=== PATIENT | male | born 1940 | race Caucasian/White ===

== ENCOUNTER → 2024-09-21 09:37 | Outpatient (REF) | payer OTHER, SELFPAY | LOC: REG 09:37 | PROVIDERS: ATTENDING PHYSICIAN Physician Assistant Medical; FAMILY PHYSICIAN Family Medicine | DX: R05.3 Chronic cough (principal); R06.2 Wheezing | CPT/HCPCS: 71046 ==

== ENCOUNTER 2025-02-05 12:32 | Inpatient (IN) | payer OTHER, SELFPAY ==
[2025-02-05] VITALS (7 sets, daily range): BP systolic 95–147; BP diastolic 61–87; BMI 24.7; BMI 23.2
[2025-02-05 09:30] LABS: % Basophils 0.8 % (0-2); % Immature Granulocytes 0.4 % (0-0.5); % Lymphocytes 18.4 % (20.5-51.1); % Monocytes 11.8 % (1.7-9.3); % Neutrophils 63.6 % (42.2-75.2); Absolute Basophils 0.1 10^3/uL (0-0.2); Absolute Eosinophils 0.4 10^3/uL (0-0.7); Absolute Lymphocytes 1.4 10^3/uL (1.2-3.4); Absolute Monocytes 0.9 10^3/uL (0.1-0.6); Absolute Neutrophils 4.8 10^3/uL (1.4-6.5); Mean Corp Hgb Conc. 35.6 g/dL (33.0-37.0); Mean Corpuscular Hgb 33.6 pg (27.0-31.0); Mean Corpuscular Volume 94.5 fL (80.0-94.0); Mean Platelet Volume 9.5 fL (7.4-10.4); Nucleated Red Blood Cells % 0 % (-); Platelet Count 308 10^3/uL (130-400); Red Blood Cell Count 4.76 10^6/uL (4.70-6.10); Red Cell Dist. Width 11.8 % (11.5-14.5); White Blood Cell Count 7.6 10^3/uL (4.8-10.8)
[2025-02-05 09:34] LABS: ALT (SGPT) 30 U/L (0-50); AST (SGOT) 33 U/L (17-59); Albumin 3.7 g/dl (3.5-5.0); Alkaline Phosphatase 129 U/L (38-126); Blood Urea Nitrogen 16 mg/dl (9-20); Calcium 9.5 mg/dl (8.4-10.2); Carbon Dioxide 28 mmol/L (22-30); Chloride 104 mmol/L (98-107); Estimated Creatinine Clearance 65 ml/min; Glucose 122 mg/dl (70-99); Lipase 983 U/L (23-300); Potassium 4.4 mmol/L (3.5-5.1); Sodium 138 mmol/L (135-145); Total Bilirubin 1.4 mg/dl (0.2-1.3); Total Protein 6.4 g/dl (6.3-8.2); eGFR > 60.00
--- NOTE | 2025-02-05 10:47 | ED.GENMED ---
History of Present Illness
General
Chief Complaint: Abdominal Pain
Source: patient, records and spouse
Exam Limitations: none
Time Seen by Provider: 02/05/25 09:18
Nursing documentation reviewed up to this point in time: agreed with
History of Present Illness
History of Present Illness:
84-year-old male status post cholecystectomy, social drinker presents with nausea and abdominal bloating last evening, today felt better then developed fairly intense right upper abdominal pain reminiscent of his gallstones, requiring 911 EMS
activation here is feeling a bit better, no fever chills no chest pain, had a few glasses of white wine last night which is not uncommon for him,
Past History
Past History
ED Past Medical History: Other (Back pain)
ED Past Surgical History: Cholecystectomy; Negative Cardiac
Social History
Tobacco: Non-smoker
Alcohol: Occasional
Drug: None
Personal:
Living: with family
Employment: Retired
Family History
Family History: Other (Noncontributory)
Review of Systems
Review of Systems
All Other Systems: Not applicable
Constitutional: Denies fever or fatigue
EENT: Reports no symptoms
Respiratory: Reports no symptoms
Cardiac: Reports no symptoms
ABD/GI: Reports abdominal pain, nausea and vomiting
Musculoskeletal: Reports no symptoms
Skin: Reports no symptoms
Phy Exam
Physical Exam
Physical Exam:
Physical Exam
General: no apparent distress, not acutely ill
Neck: No jaundice
Heart: s1/s2 regular rate and rhythm, no murmur. equal radial pulses.
Lungs: no acute respiratory distress. clear bilaterally
Abdomen: Soft nontender
Neuro: alert and oriented. no focal neurological deficits
Skin: no rash
Psychiatric: well kept. interactive and cooperative
Extremities: no edema.
Course
Orders/Labs/Results
Orders:
Orders
02/05/25 09:09
Electrocardiogram (*1) Urgent
Reason for Study: Abdominal Pain
EKG- Treatment ONCE
02/05/25 09:11
Complete Blood Count/With Diff Urgent
Comprehensive Metabolic Panel Urgent
Lipase Urgent
02/05/25 10:19
CT Abd/pelvis W Iv Cont Urgent
Comment:
Reason For Exam: pain lipase up
02/05/25 10:34
0.9% Sodium Chloride 1000 ml [Nss] 1,000 ml IV BOLUS
Ondansetron Injectable [Zofran] 4 mg IV NOW STA
Pantoprazole [Protonix IV] 40 mg IV NOW STA
02/05/25 11:31
HYDROmorphone [Dilaudid] 0.5 mg IV NOW STA
Abnormal Lab Results
02/05/25
09:11
MCV 94.5 H fL
(80.0-94.0)
MCH 33.6 H pg
(27.0-31.0)
Absolute Monos (auto) 0.9 H 10^3/uL
(0.1-0.6)
Lymphocytes % 18.4 L %
(20.5-51.1)
Monocytes % 11.8 H %
(1.7-9.3)
Glucose 122 H mg/dl
(70-99)
Total Bilirubin 1.4 H mg/dl
(0.2-1.3)
Alkaline Phosphatase 129 H U/L
(38-126)
Lipase 983 H U/L
(23-300)
02/05/25 09:11
02/05/25 09:11
Vital Signs
Initial and Last Documented VS:
Initial Vital Signs
BP
147/87
02/05/25 09:05
Last Documented Vital Signs
Temp Pulse Resp BP Pulse Ox
98.4 F 68 16 147/87 94
02/05/25 09:06 02/05/25 10:00 02/05/25 09:45 02/05/25 09:06 02/05/25 09:45
MDM/Problems Addressed
Differential Diagnosis Includes:
Pancreatitis biliary colic common duct stone
MDM/Problems Addressed:
Abdominal pain
Chronic conditions affecting care: Previous abdomnial surgery
Acute Exacerbation and/or Progression of Chronic Illness: Previous abdomnial surgery
*Critical Care Note
Total Time (30-74mins, 75-104mins- exclusive of procedures): Not Applicable
Update Note
Update Note:
update
Labs noted patient with her current pain, CT noted will require admission
ED Attending Note
-
Portions of this chart may have been created with voice recognition software.� Occasional wrong word or��sound alike� substitutions may have occurred due to the inherent limitations of voice recognition software.
Discharge Plan
Departure
Patient Disposition: Admit
Date of Disposition: 02/05/25
Time of Disposition: 12:03
Presentation/result/management discussed w/ accepting MD/DO: Hospitalist
Patient with high blood pressure during this ER visit?: No
Condition: Good
Covid-19: Not Applicable
Discharge Problem:
Abdominal pain
Prescriptions:
No Action
mupirocin 1 APPLIC ointment
1 applic intranasal BID Qty: 1 0RF
Rx Instructions:
Patient has from prior L TSA.
oxycodone 5 MG tablet
5 mg PO Q6HPRN PRN (Reason: moderate-severe pain) Qty: 30 0RF
Rx Instructions:
1 tab moderate pain or 2 if pain severe
Dx total joint replacement
ongoing therapy
celecoxib 200 MG capsule
200 mg PO DAILY Qty: 30 0RF
ondansetron HCl 4 MG tablet
4 mg PO Q6HPRN PRN (Reason: nausea) Qty: 15 0RF
Rx Instructions:
Take 1/2 hour prior to Oxycodone if experiencing recurrent nausea
famotidine 20 MG tablet
20 mg PO HS Qty: 30 0RF
acetaminophen 500 MG tablet
1,000 mg PO Q6H Qty: 1 0RF
Rx Instructions:
Do not exceed >4000 mg daily.
docusate sodium 100 MG capsule
100 mg PO BID Qty: 1 0RF
sennosides [senna] 8.6 MG tablet
8.6 mg PO BID Qty: 2 0RF
aspirin 325 MG tablet
325 mg PO DAILY Qty: 1 0RF
Rx Instructions:
Take daily x4 weeks for blood clot prevention.
Referrals:
Afua Gonzalez DO [Family Provider] -
Interventions
Interventions:
*Risk Screen - Suicide Last Done: 02/05/25 09:06
*General Assessment Last Done: 02/05/25 09:06
*Neglect/Abuse Screening Last Done: 02/05/25 09:06
*ED- Fall Risk Assessment Last Done: 02/05/25 09:10
*ED COVID-19 Vaccine History Last Done: 02/05/25 09:10
GX-Nxowjo-Arwelpdnaq Assessment Last Done: 02/05/25 09:39
Discharge Date and Time
Print Language: MALAWIAN
[2025-02-05] MEDS: NSS 1000 IV ×2 (10:51→16:07)
[2025-02-05] MEDS: PROTONIX IV 40 MG IV (10:51)
[2025-02-05] MEDS: ZOFRAN 4 MG IV (10:51)
[2025-02-05] MEDS: DILAUDID 0.5 MG IV (11:34)
[2025-02-05] MEDS: DILAUDID 1 MG IV ×3 (12:08→20:07)
--- NOTE | 2025-02-05 12:20 | HPS.HSE ---
Family Physician
-
Family Physician: Afua Gonzalez
Chief Complaint
-
abdominal pain
History of Present Illness
84-year-old male past medical history of cholelithiasis status post cholecystectomy in 2011, polycythemia vera, diverticulosis, spinal stenosis, osteoarthritis, presenting with vomiting since last night and severe right upper quadrant abdominal pain
starting this morning.. Today he felt better but then he developed fairly intense right upper abdominal pain reminiscent of gallstones. He called EMS. He denies any fevers or chills. Denies chest pain. Denies shortness of breath. Denies
diarrhea or constipation.
He does drink alcohol occasionally. He had a few glasses of white wine last night which is not uncommon for him.
He was treated with UTI initially with ciprofloxacin and switch to another antibiotic last week.
Denies smoking.
His mother had gallstone disease.
Medical History
Past Medical History
Past Medical History: Reports Other ( cholelithiasis status post cholecystectomy in 2011, polycythemia vera, diverticulosis, spinal stenosis, osteoarthritis, )
Past Surgical History: Reports Cholecystectomy
Social History
Tobacco: Non-smoker
Alcohol: Occasional
Drug: None
Family History
Family History: Not pertinent
Allergies / Home Medications
Allergies reflects when Allergies were last updated in [facility].
Home Medications with original date entered in [facility]
Allergy/Medication List:
Allergies
Allergy/AdvReac Type Severity Reaction Status Date / Time
No Known Allergies Allergy Verified 02/05/25 09:10
Home Medications
celecoxib 200 mg capsule 200 mg PO DAILY #30 caps 08/17/20
famotidine 20 mg tablet 20 mg PO HS #30 tabs 08/17/20
mupirocin 2 % topical ointment 1 applic intranasal BID #1 tube 08/17/20
ondansetron HCl 4 mg tablet 4 mg PO Q6HPRN PRN nausea #15 tabs 08/17/20
oxycodone 5 mg tablet 5 mg PO Q6HPRN PRN moderate-severe pain #30 tabs 08/17/20
acetaminophen 500 mg tablet 1,000 mg (2 x 500 mg) PO Q6H #1 tab 09/07/20
aspirin 325 mg tablet 325 mg PO DAILY #1 tab 09/07/20
docusate sodium 100 mg capsule 100 mg PO BID #1 cap 09/07/20
sennosides 8.6 mg tablet (senna) 8.6 mg PO BID #2 tabs 09/07/20
Review of Systems
-
History Source: Patient
A 12 point ROS was completed and negative except as noted: Yes
Constitutional: Reports No Symptoms
EENT: Reports No Symptoms
Respiratory: Reports No Symptoms
Cardiac: Reports No Symptoms
Abdomen/GI: Reports See HPI
: Reports No Symptoms
Musculoskeletal: Reports No Symptoms
Skin: Reports No Symptoms
Neurological: Reports No Symptoms
Endocrine: Reports No Symptoms
Hematologic/Lymphatic: Reports No Symptoms
Psych: Reports No Symptoms
Physical Exam
Vital Signs
Vital Signs
Temp Pulse Resp BP Pulse Ox
98.4 F 68 16 147/87 94
02/05/25 09:06 02/05/25 10:00 02/05/25 09:45 02/05/25 09:06 02/05/25 09:45
Physical Exam
General: Well Developed, Well Nourished and No Apparent Distress
HEENT: NormoCephalic, Moist mucous membranes and Atraumatic
Respiratory: Clear
Cardiac: S1/S2 and Regular Rhythm; No Murmur or Rub
GI: Soft, Non Distended, Normal Bowel Sounds and Tender (RUQ ); No Organomegaly
Rectal: Deferred by Provider
Musculoskeletal: No Clubbing, No Cyanosis and No Edema
Skin: No Rash
Neuro: Nonfocal/grossly intact
Laboratory Results
-
02/05/25 09:11
02/05/25 09:11
Laboratory Results
Total Bilirubin 1.4 mg/dl (0.2-1.3) H 02/05/25 09:11
AST 33 U/L (17-59) 02/05/25 09:11
ALT 30 U/L (0-50) 02/05/25 09:11
Alkaline Phosphatase 129 U/L (38-126) H 02/05/25 09:11
Lipase 983 U/L (23-300) H 02/05/25 09:11
Data Reviewed
-
Lab Data: Labs Reviewed by me
Old Records: Reviewed
Impression/Plan
-
IMPRESSION:
PLAN:
# Right upper quadrant pain concerning for choledocholithiasis
# History of cholelithiasis status post cholecystectomy in 2011
-LFTs normal, total bilirubin only 1.4
-Lipase 980
-CT abdomen pelvis shows prior cholecystectomy, atrophy with biliary duct dilatation within the left hepatic lobe which is overall similar in appearance prior may be related to biliary obstruction or stenosis, no findings of acute pancreatitis
-N.p.o.
-IV fluids
-MRI/MRCP
-Dilaudid, Zofran
-GI consulted
History of gallstones status post cholecystectomy
Polycythemia vera
Diverticulosis
Spinal stenosis/osteoarthritis
Full code
DVT prophylaxis�heparin
N.p.o.
[2025-02-05] MEDS: HEPARIN 5000 UNITS SC (20:06)
[2025-02-06] MEDS: NSS 1000 IV ×2 (02:05→17:09)
[2025-02-06 06:24] LABS: % Basophils 0.1 % (0-2); % Immature Granulocytes 0.4 % (0-0.5); % Lymphocytes 4.1 % (20.5-51.1); % Monocytes 6.6 % (1.7-9.3); % Neutrophils 88.8 % (42.2-75.2); Absolute Immature Granulocytes 0.1 10^3/uL (0-0.05); Absolute Lymphocytes 0.7 10^3/uL (1.2-3.4); Absolute Neutrophils 14.1 10^3/uL (1.4-6.5); Hematocrit 44.6 % (39.0-52.0); Hemoglobin 15.9 g/dL (13.0-18.0); Mean Corp Hgb Conc. 35.7 g/dL (33.0-37.0); Mean Corpuscular Hgb 34.2 pg (27.0-31.0); Mean Corpuscular Volume 95.9 fL (80.0-94.0); Nucleated Red Blood Cells % 0 % (-); Platelet Count 299 10^3/uL (130-400); Red Blood Cell Count 4.65 10^6/uL (4.70-6.10); Red Cell Dist. Width 11.9 % (11.5-14.5); White Blood Cell Count 15.9 10^3/uL (4.8-10.8)
[2025-02-06] MEDS: DILAUDID 1 MG IV ×4 (06:37→21:17)
[2025-02-06 06:54] LABS: ALT (SGPT) 39 U/L (0-50); AST (SGOT) 43 U/L (17-59); Albumin 3.5 g/dl (3.5-5.0); Alkaline Phosphatase 120 U/L (38-126); Blood Urea Nitrogen 12 mg/dl (9-20); Calcium 8.7 mg/dl (8.4-10.2); Carbon Dioxide 25 mmol/L (22-30); Chloride 102 mmol/L (98-107); Estimated Creatinine Clearance 87 ml/min; Glucose 135 mg/dl (70-99); Potassium 4.3 mmol/L (3.5-5.1); Sodium 134 mmol/L (135-145); Total Bilirubin 2.5 mg/dl (0.2-1.3); eGFR > 60.00
[2025-02-06 07:00] VITALS: BP 163/83
[2025-02-06] MEDS: HEPARIN 5000 UNITS SC ×2 (07:46→20:13)
[2025-02-06] MEDS: NSS IV (11:47)
--- NOTE | 2025-02-06 12:39 | W.PN.HOSP.TC ---
Today's Communication/Plan
-
Assessment / Plan
Assessment / Plan
Gen-AAOx3, NAD
HEENT-NC, AT, anicteric, clear oral mm
Neck-supple
CV-reg, no M, +S1/S2
Lungs-clear B/L
Abd-soft, mild TTP diffusely
Musculoskeletal-no edema, no deformity
Skin-warm and dry
Neuro-grossly non-focal
Psych-calm, cooperative
Mr. Patel is an 84-year-old male with a medical history of polycythemia vera, diverticulosis, cholelithiasis (status post cholecystectomy 2011), spinal stenosis, and osteoarthritis who presented with severe right upper quadrant abdominal pain with
associated vomiting. CT imaging of his abdomen and pelvis confirms prior cholecystectomy, shows intrahepatic biliary duct dilatation, no evidence of pancreatitis, extensive colonic diverticulosis. He was started on IV fluids and pain medications
and admitted for further evaluation and management.
Right upper quadrant pain:
-Concern for choledocholithiasis, history of cholecystectomy in 2011
-Lipase and T. bili elevated
-MRCP pending
-Will start antibiotics with ceftriaxone and metronidazole considering leukocytosis with left shift
-N.p.o. for now, IV fluids, pain control
-To be evaluated by GI
Hyponatremia:
-Mild, clinically insignificant
-Will monitor
CODE STATUS: Full code
Anticipated Discharge: 24 - 48 hours
Subjective/Interval History
-
Date of Service: February 06, 2025
Patient was seen and examined at bedside this morning. Reports migration of his abdominal pain from right upper quadrant to diffusely painful including left lower quadrant at times. Awaiting MRCP for further evaluation of possible CBD obstruction.
Objective Data
-
Labs:
Laboratory Results
02/06/25
05:10
WBC 15.9 H
Hgb 15.9
Hct 44.6
Plt Count 299
Sodium 134 L
Potassium 4.3
Chloride 102
Carbon Dioxide 25
BUN 12
Creatinine 0.6 L
Glucose 135 H
Calcium 8.7
Total Bilirubin 2.5 H D
AST 43
ALT 39
Alkaline Phosphatase 120
Vital Signs:
Vital Signs
Temp Pulse Resp BP Pulse Ox
98.1 F 82 16 163/83 97
02/06/25 07:00 02/06/25 07:00 02/06/25 07:00 02/06/25 07:00 02/06/25 07:00
Review of Systems
-
History Source: Patient
All other systems: Reviewed and negative
Abdomen/GI: Reports Abdominal Pain
Physical Exam
-
General: No Apparent Distress
[2025-02-06 13:20] LABS: Direct Bilirubin 0.6 mg/dl (0.0-0.4)
[2025-02-06] MEDS: STERILE WATER FOR INJECTION 10 ML IV (13:54)
[2025-02-06] MEDS: ROCEPHIN 1000 MG IV (13:55)
--- NOTE | 2025-02-06 14:05 | CON.GI ---
Addendum entered and electronically signed by Akanksha Marcano MD 02/06/25 16:27:
I saw and examined the patient.
The LOCAL BULK DRIVER or PA's note was reviewed and I agree with the note.
Comment:
This patient is an 84-year-old man with a history of polycythemia vera, cholelithiasis status postcholecystectomy in 2011. He came to the emergency room with acute right upper quadrant pain that is now traveling to his epigastric region. He
states that the pain was very similar to his biliary colic. He did have labs drawn that showed a mildly elevated bilirubin with normal transaminases and alkaline phosphatase. He did have an elevated lipase at 983. He did have imaging and an MRI
did show narrowing and stricturing in his left intrahepatic ducts with a normal common bile duct. He does have pancreatic cysts and a small amount of ascites This is somewhat chronic as he did have changes seen in 2020. Currently he states that the
pain has traveled over to the left. He has no fevers, nausea or vomiting. He does have decreased appetite.
abd: soft, nontender
impression:
pancreatitis,
pancreatitic cysts
abnl imaging
intrahepatic bile duct dilation
decreased appetite
plan:
This patient is an 84-year-old man with a history of a cholecystectomy who has chronic changes in his intrahepatic bile ducts on the left which appear to be worsening as well as pancreatic cysts and a small amount of ascites. This is the first time
he has had abdominal pain and decreased appetite. For now would do the following:
1. I did discuss with him and his at length regarding the anatomy changes he has. Although there is no mass or lesion that should be further worked up as he is now having new pain. I do think his images need to be reviewed by Dr. Heath our
interventional endoscopist. Further interventions will be based on his evaluation
2. pain control
3. PPI
4. clears
Original Note:
Consultation
-
Date/Time Consultation Requested: 02/05/25 1311
Date/Time Consultation Performed: 02/06/25 1200
Requesting Provider: Dr. Prescott
Performing Provider: /GRADY Clemente
Reason for Consultation: abd pain
Medical History
Chief Complaint / HPI
Chief Complaint: abd pain
History of Present Illness:
84-year-old male with past medical history of polycythemia vera, diverticulosis, spinal stenosis, osteoarthritis, cholelithiasis status postcholecystectomy 2011, recent UTI treated with Cipro followed by another antibiotic that he cannot recall the
name of with resolution of symptoms, presents to the emergency room with acute onset of right upper quadrant discomfort. Asked to evaluate for the same. The patient states that Thursday evening he ate a chicken cheese steak, bag of chips and
coleslaw. That night he woke up at approximately 2 AM with nausea and vomiting. He states the following morning he woke up he states he stretched and then had acute onset of epigastric/right upper quadrant pain that was sharp, constant, severe in
intensity which he rates a 9 out of 10. This reminded him of the time he had a gallstone attack. He presented to the emergency room for further evaluation. Since that time the pain went from the right side of his abdomen and moved to the left.
The pain stayed the same intensity. Last night he states that it was quite severe. He states the pain medication did not touch the discomfort. Finally this morning the pain dissipated. He denied any fevers, chills, melena, hematochezia, acholic
stools, bilirubinuria. He does not smoke. He drinks approximately 3-4 alcoholic beverages on the weekend. His last colonoscopy was approximately 10 years ago. He does take aspirin 325 mg daily as well as Celebrex daily, Aleve 1 pill daily and an
occasional ibuprofen. He also uses Tylenol 1 a day as well. On arrival WBC 7.6, hemoglobin 16.0, hematocrit 45.0, platelets 308. He was afebrile. Started on ceftriaxone today as he developed a leukocytosis of 15.9 without fever. Sodium 134,
potassium 4.3, chloride 102, CO2 25, BUN 12, creatinine 0.6, glucose 135. On arrival total bilirubin 1.4 that was not fractionated. Today bilirubin 2.5 with direct bilirubin 0.6, AST 43, ALT 39, alk phos 120. Lipase yesterday 983.
Past Medical History
Past Medical History: Other (Polycythemia vera, diverticulosis, spinal stenosis, osteoarthritis, cholelithiasis status postcholecystectomy, UTI)
Past Surgical History: Cholecystectomy
Social History
Tobacco: Non-Smoker
Alcohol: Occasional (3-4 on weekends)
Drug: None
Family History
Family History: Other (No family history gastrointestinal malignancy or IBD)
Allergies / Home Medications
Allergy/AdvReac Type Severity Reaction Status Date / Time
No Known Allergies Allergy Verified 02/05/25 09:10
�Medication �Instructions �Recorded
ondansetron HCl 4 mg tablet 4 mg PO Q6HPRN PRN nausea #15 tabs 08/17/20
oxycodone 5 mg tablet 5 mg PO Q6HPRN PRN moderate-severe 08/17/20
pain #30 tabs
acetaminophen 500 mg tablet 1,000 mg PO Q6H Fever/Pain 02/06/25
acetaminophen 500 mg tablet 1,000 mg PO Q6H Pain 02/06/25
aspirin 325 mg tablet 325 mg PO DAILY Heart 02/06/25
Disease/Condition
aspirin 325 mg tablet 325 mg PO DAILY Heart Failure 02/06/25
celecoxib 200 mg capsule 200 mg PO DAILY Pain 02/06/25
docusate sodium 100 mg capsule 100 mg PO BID Constipation 02/06/25
famotidine 20 mg tablet 20 mg PO HS Gastrointestinal Issue 02/06/25
mupirocin 2 % topical ointment 1 applic intranasal BID Skin Issues 02/06/25
sennosides 8.6 mg tablet (senna) 8.6 mg PO BID Constipation 02/06/25
sennosides 8.6 mg tablet (senna) 8.6 mg PO BID Loose Stools 02/06/25
Review of Systems
-
All other systems: A 12 pt ROS was Negative except as stated above in HPI
Vital Signs
Temp Pulse Resp BP Pulse Ox
98.1 F 82 16 163/83 97
02/06/25 07:00 02/06/25 07:00 02/06/25 07:00 02/06/25 07:00 02/06/25 07:00
Physical Exam
Exam
General: No Apparent Distress
HEENT: Anicteric
Respiratory: Clear
Cardiac: Regular Rhythm
GI: Soft, Non Tender, Non Distended and Normal Bowel Sounds
Musculoskeletal: No Edema
Skin: Warm and Dry
Neuro: AO x 3
Psych: Calm
Results
WBC 15.9 10^3/uL (4.8-10.8) H 02/06/25 05:10
Hgb 15.9 g/dL (13.0-18.0) 02/06/25 05:10
Hct 44.6 % (39.0-52.0) 02/06/25 05:10
MCV 95.9 fL (80.0-94.0) H 02/06/25 05:10
Plt Count 299 10^3/uL (130-400) 02/06/25 05:10
Absolute Neuts (auto) 14.1 10^3/uL (1.4-6.5) H 02/06/25 05:10
Sodium 134 mmol/L (135-145) L 02/06/25 05:10
Potassium 4.3 mmol/L (3.5-5.1) 02/06/25 05:10
Chloride 102 mmol/L (98-107) 02/06/25 05:10
Carbon Dioxide 25 mmol/L (22-30) 02/06/25 05:10
BUN 12 mg/dl (9-20) 02/06/25 05:10
Creatinine 0.6 mg/dL (0.7-1.3) L 02/06/25 05:10
Calcium 8.7 mg/dl (8.4-10.2) 02/06/25 05:10
Total Bilirubin 2.5 mg/dl (0.2-1.3) H D 02/06/25 05:10
AST 43 U/L (17-59) 02/06/25 05:10
ALT 39 U/L (0-50) 02/06/25 05:10
Alkaline Phosphatase 120 U/L (38-126) 02/06/25 05:10
Lipase 983 U/L (23-300) H 02/05/25 09:11
Diagnostic Image Results:
CT abdomen and pelvis with IV contrast only:
IMPRESSION:
Prior cholecystectomy.
There is atrophy with intrahepatic biliary duct dilation within the left hepatic lobe which is overall similar in appearance to prior however may be related to biliary obstruction or stenosis. Consider MRCP for further evaluation.
There is no definite CT findings of acute pancreatitis.
Extensive colonic diverticulosis.
Electronically signed by Anatoliy Vincent MD, 02/05/2025 11:43 AM
MRI of the abdomen with and without contrast with MRCP:
IMPRESSION: Status post cholecystectomy.
Severe intrahepatic bile duct dilation involving the lateral segment. This is been present on CT scan dating back to 2020 with progressive atrophy of the parenchyma of the lateral segment of the liver.
This appears to be due to a focal stenosis at the junction of the left hepatic duct and the lateral segmental branch, with no MR evidence for an obstructing mass lesion.
Two filling defects within the dilated ducts of the lateral segment, compatible with calculi.
Mild intrahepatic bile duct dilation the rest of the liver, likely physiologic after cholecystectomy. There is no significant dilation of the common hepatic duct or the common bile duct. There is no evidence for calculus within the common hepatic
duct and the common bile duct.
Small amount of ascites adjacent liver and spleen, and also seen within the pelvis. This ascites appears new from yesterday's CT examination.
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 In an 84-year-old, no further imaging follow-up is generally recommended.
Electronically signed by Rosas Gregory MD, 02/06/2025 1:16 PM
Prior GI Procedures:
EGD: never
Colonoscopy: 02/27/2014 (dr. James) Multiple small and large-mouthed diverticula were found in the sigmoid
colon.
The exam was otherwise without abnormality.
Assessment / Plan
-
84-year-old male with past medical history of polycythemia vera, diverticulosis, spinal stenosis, osteoarthritis, cholelithiasis status postcholecystectomy 2011, recent UTI treated with Cipro followed by another antibiotic that he cannot recall the
name of with resolution of symptoms, presents to the emergency room with acute onset of right upper quadrant discomfort. Asked to evaluate for the same. The patient states that Thursday evening he ate a chicken cheese steak, bag of chips and
coleslaw. That night he woke up at approximately 2 AM with nausea and vomiting. He states the following morning he woke up he states he stretched and then had acute onset of epigastric/right upper quadrant pain that was sharp, constant, severe in
intensity which he rates a 9 out of 10. This reminded him of the time he had a gallstone attack. He presented to the emergency room for further evaluation. He does take aspirin 325 mg daily as well as Celebrex daily, Aleve 1 pill daily and an
occasional ibuprofen. He also uses Tylenol 1 a day as well. On arrival WBC 7.6, hemoglobin 16.0, hematocrit 45.0, platelets 308. He was afebrile. Started on ceftriaxone today as he developed a leukocytosis of 15.9 without fever. Sodium 134,
potassium 4.3, chloride 102, CO2 25, BUN 12, creatinine 0.6, glucose 135. On arrival total bilirubin 1.4 that was not fractionated. Today bilirubin 2.5 with direct bilirubin 0.6, AST 43, ALT 39, alk phos 120. Lipase yesterday 983.
MRI Abd MRCP findings:
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
--2 filling defects within the dilated ducts compatible with calculi
--Mild intrahepatic duct dilatation, s/p cholecystectomy
--No common hepatic duct dilatation or calculi seen on MRI
--No CBD dilatation or calculi seen on imaging
--small ascites adjacent to liver, spleen and pelvis new from CT yesterday
--mild dilatation of pancreatic duct within the head of the pancreas (4mm), posterior aspect of proximal tail (4mm cyst), posterior head pancreas (4mm cyst) and few other scattered smaller cysts within pancreas
Impression:
RUQ pain/epigastric/LUQ pain
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
Mild pancreatic duct dilatation
Elevated Lipase
Elevated WBC
Elevated T Bili, however normal fractionation and normal transaminases
Plan:
-Continue NPO
-IVF
-Continue Ceftriaxone
-Will need to review MRI/MRCP with Dr. Heath
-Continue Pantoprazole, discussed with patient overuse of NSAIDS. (Is taking ASA 325 daily, Celebrex, Aleve daily. Uses Motrin or Advil almost daily as well.)
-CBC, BMP, LFTs, in am
-
-
Thank you for consultation and allowing me to participate in the patient's care. Please call the sales assistant institutional sales GI physician during the after hours with any questions or concerns.
[2025-02-06] MEDS: FLAGYL 250 MG 50 IV ×2 (14:17→21:18)
[2025-02-06 15:00] VITALS: BP 147/74
--- NOTE | 2025-02-06 15:56 | CM ---
Alert awake oriented patient who lives with his Yanira in a 2 story home with 32 step to enter and 13 steps to bed and bathroom. He is independent in driving and in all activities of daily living.He was offered VN he declined need.His will
drive him home at pr.
No VN hx / No SNF history
Pharmacy [facility] [address] [place]
PCP DR Flores
PLAN Home Declined VN
[2025-02-06 23:00] VITALS: BP 139/65
[2025-02-07] VITALS (7 sets, daily range): BP systolic 115–160; BP diastolic 57–77
[2025-02-07] MEDS: TYLENOL 650 MG PO ×2 (05:05→09:57)
[2025-02-07] MEDS: FLAGYL 250 MG 50 IV ×3 (05:05→22:20)
[2025-02-07] MEDS: NSS 1000 IV ×2 (05:05→17:09)
[2025-02-07 05:45] LABS: Hematocrit 40.3 % (39.0-52.0); Hemoglobin 14.6 g/dL (13.0-18.0); Mean Corp Hgb Conc. 36.2 g/dL (33.0-37.0); Mean Corpuscular Hgb 34.4 pg (27.0-31.0); Mean Platelet Volume 9.8 fL (7.4-10.4); Platelet Count 282 10^3/uL (130-400); Red Blood Cell Count 4.24 10^6/uL (4.70-6.10); Red Cell Dist. Width 11.9 % (11.5-14.5); White Blood Cell Count 10.7 10^3/uL (4.8-10.8)
[2025-02-07 05:57] LABS: INR 1.23; PT 15.8 Sec (11.4-14.6)
[2025-02-07 06:13] LABS: ALT (SGPT) 38 U/L (0-50); AST (SGOT) 45 U/L (17-59); Alkaline Phosphatase 111 U/L (38-126); Blood Urea Nitrogen 11 mg/dl (9-20); Calcium 8.5 mg/dl (8.4-10.2); Carbon Dioxide 26 mmol/L (22-30); Chloride 101 mmol/L (98-107); Direct Bilirubin 0.7 mg/dl (0.0-0.4); Estimated Creatinine Clearance 87 ml/min; Glucose 109 mg/dl (70-99); Potassium 4.1 mmol/L (3.5-5.1); Sodium 133 mmol/L (135-145); Total Bilirubin 2.7 mg/dl (0.2-1.3); Total Protein 5.3 g/dl (6.3-8.2); eGFR > 60.00
[2025-02-07] MEDS: HEPARIN 5000 UNITS SC ×2 (08:54→20:27)
--- NOTE | 2025-02-07 14:16 | W.PN.HOSP.TC ---
Today's Communication/Plan
-
Assessment / Plan
Assessment / Plan
Gen-AAOx3, NAD
HEENT-NC, AT, anicteric, clear oral mm
Neck-supple
CV-reg, no M, +S1/S2
Lungs-clear B/L
Abd-soft, nontender
Musculoskeletal-no edema, no deformity
Skin-warm and dry
Neuro-grossly non-focal
Psych-calm, cooperative
Mr. Patel is an 84-year-old male with a medical history of polycythemia vera, diverticulosis, cholelithiasis (status post cholecystectomy 2011), spinal stenosis, and osteoarthritis who presented with severe right upper quadrant abdominal pain with
associated vomiting. CT imaging of his abdomen and pelvis confirms prior cholecystectomy, shows intrahepatic biliary duct dilatation, no evidence of pancreatitis, extensive colonic diverticulosis. He was started on IV fluids and pain medications
and admitted for further evaluation and management.
Right upper quadrant pain:
-Concern for choledocholithiasis, history of cholecystectomy in 2011
-Lipase and T. bili elevated
-MRCP shows severe intrahepatic bile duct dilatation
-Continue antibiotics with ceftriaxone and metronidazole, leukocytosis resolved
-N.p.o. for now, IV fluids, pain control
-Follow-up with GI regarding plans for endoscopy
Hyponatremia:
-Mild, stable, clinically insignificant
-Will monitor
CODE STATUS: Full code
Anticipated Discharge: 24 - 48 hours
Subjective/Interval History
-
Date of Service: February 07, 2025
Patient was seen and examined at bedside this morning. Currently pain-free. N.p.o. awaiting evaluation and possible endoscopy with GI.
Objective Data
-
Labs:
Laboratory Results
02/07/25
05:14
WBC 10.7
Hgb 14.6
Hct 40.3
Plt Count 282
PT 15.8 H
INR 1.23
Sodium 133 L
Potassium 4.1
Chloride 101
Carbon Dioxide 26
BUN 11
Creatinine 0.6 L
Glucose 109 H
Calcium 8.5
Total Bilirubin 2.7 H
AST 45
ALT 38
Alkaline Phosphatase 111
Vital Signs:
Vital Signs
Temp Pulse Resp BP Pulse Ox
98.4 F 69 16 131/69 95
02/07/25 07:46 02/07/25 07:46 02/07/25 07:46 02/07/25 07:46 02/07/25 07:46
I&O
02/06/25 02/07/25 02/08/25
06:59 06:59 06:59
Intake Total 2780 / 2780
Output Total 1000 / 1000 600 / 600
Balance 1780 / 1780 -600 / -600
Review of Systems
-
History Source: Patient
All other systems: Reviewed and negative
Physical Exam
-
General: No Apparent Distress
[2025-02-07] MEDS: STERILE WATER FOR INJECTION 10 ML IV (15:11)
[2025-02-07] MEDS: ROCEPHIN 1000 MG IV (15:12)
[2025-02-08] MEDS: FLAGYL 250 MG 50 IV (06:28)
[2025-02-08 06:30] LABS: ALT (SGPT) 44 U/L (0-50); AST (SGOT) 54 U/L (17-59); Albumin 2.8 g/dl (3.5-5.0); Alkaline Phosphatase 115 U/L (38-126); Direct Bilirubin 0.6 mg/dl (0.0-0.4); Total Bilirubin 1.4 mg/dl (0.2-1.3)
[2025-02-08 07:05] VITALS: BP 132/66
[2025-02-08] MEDS: HEPARIN 5000 UNITS SC (07:55)
[2025-02-08] MEDS: TYLENOL 650 MG PO (11:22)
--- NOTE | 2025-02-08 13:19 | W.PN.UPDATE ---
Update Note
Progress Note Update
okay for discharge
Will need an outpatient CTAngio - per Dr. 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
We will order and he will follow up with Dr Heath in the office
--- NOTE | 2025-02-08 13:34 | W.DCSUMMARY ---
Addendum entered and electronically signed by Anatoliy Givens DO 02/09/25 15:31:
__x__- Pancreatitis is a valid diagnosis during this admission, based on abdominal pain and elevated lipase beyond 3 times the upper limit of normal, likely transient due to biliary lithiasis which was addressed as outlined below
Original Note:
Discharge Summary
Discharge Data
Date of Admission: 02/05/25
Date of Discharge: 02/08/25
-
Pending Results: No
Hospital Course
Mr. Patel is an 84-year-old male with a medical history of polycythemia vera, diverticulosis, cholelithiasis (status post cholecystectomy 2011), spinal stenosis, and osteoarthritis who presented with severe right upper quadrant abdominal pain with
associated vomiting. CT imaging of his abdomen and pelvis confirms prior cholecystectomy, shows intrahepatic biliary duct dilatation, no evidence of pancreatitis, extensive colonic diverticulosis. He was started on IV fluids and pain medications
and admitted for further evaluation and management.
His total bilirubin was elevated and peaked at 2.7. His transaminases remain within normal limits. He underwent MRCP which showed severe intrahepatic bile duct dilatation. Endoscopic ultrasound visualized multiple stones in the left intrahepatic
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 He underwent ERCP on 02/07 with partial removal of hepatic lithiasis, biliary sphincterotomy, and 1 plastic biliary stent placement into the left hepatic duct.
He was pain-free following the procedure. His liver enzymes trended down dramatically after ERCP. GI did recommend outpatient follow-up for ongoing care, including CT angiography of his abdomen to evaluate his liver vasculature and to rule out
thrombosis. He tolerated a p.o. diet after procedure and remained hemodynamically stable. He will be discharged to home with a prescription for oral antibiotics to complete a total 5-day course considering his presenting leukocytosis and
instrumentation during this hospitalization. He will need close follow-up with GI in the outpatient setting and will need labs to monitor for complete resolution of his elevated bilirubin. He should also follow-up with his primary care physician
following hospital discharge.
Gen-AAOx3, NAD
HEENT-NC, AT, anicteric, clear oral mm
Neck-supple
CV-reg, no M, +S1/S2
Lungs-clear B/L
Abd-soft, nontender
Musculoskeletal-no edema, no deformity
Skin-warm and dry
Neuro-grossly non-focal
Psych-calm, cooperative
Discharge Plan
-
Patient Disposition: Home (Routine Discharge)
Discharge Diagnosis/Procedures: Intrahepatic lithiasis with acute biliary obstruction
Diet: Low Residue
Activity: No restrictions
Activity Restrictions/Additional Instructions:
Mr. Patel is an 84-year-old male with a medical history of polycythemia vera, diverticulosis, cholelithiasis (status post cholecystectomy 2011), spinal stenosis, and osteoarthritis who presented with severe right upper quadrant abdominal pain with
associated vomiting. CT imaging of his abdomen and pelvis confirms prior cholecystectomy, shows intrahepatic biliary duct dilatation, no evidence of pancreatitis, extensive colonic diverticulosis. He was started on IV fluids and pain medications
and admitted for further evaluation and management.
His total bilirubin was elevated and peaked at 2.7. His transaminases remain within normal limits. He underwent MRCP which showed severe intrahepatic bile duct dilatation. Endoscopic ultrasound visualized multiple stones in the left intrahepatic
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 He underwent ERCP on 02/07 with partial removal of hepatic lithiasis, biliary sphincterotomy, and 1 plastic biliary stent placement into the left hepatic duct.
He was pain-free following the procedure. His liver enzymes trended down dramatically after ERCP. GI did recommend outpatient follow-up for ongoing care, including CT angiography of his abdomen to evaluate his liver vasculature and to rule out
thrombosis. He tolerated a p.o. diet after procedure and remained hemodynamically stable. He will be discharged to home with a prescription for oral antibiotics to complete a total 5-day course considering his presenting leukocytosis and
instrumentation during this hospitalization. He will need close follow-up with GI in the outpatient setting and will need labs to monitor for complete resolution of his elevated bilirubin. He should also follow-up with his primary care physician
following hospital discharge.
Referrals:
Afua Gonzalez DO [Family Provider] -
Akanksha Marcano MD [Active] -
Prescriptions:
New
cefuroxime axetil 500 mg tablet
500 mg PO BID 3 Days Qty: 6 0RF
Continued
multivitamin Tablet
1 tab PO DAILY
Discontinued
aspirin 325 MG tablet
325 mg PO DAILY
Rx Instructions:
Take daily x4 weeks for blood clot prevention.
Discharge Orders:
Discharge Patient (As Directed); Ordered 02/08/25
Ordered By: Anatoliy Givens
Discharge Date and Time
Print Language: YORUBA
--- NOTE | 2025-02-08 13:52 | CM ---
MD entered order for discharge
IMM reviewed Pt said he was ready for discharge.
He said his Yanira will drive him home.
Offered VN he declined.
PLAN Home no needs .
--- NOTE | 2025-02-08 14:00 | PTCARENOTE ---
Rn flow referral agent- Patient cleared for dc. Patient taken to dcl to await transport via to [facility].
[2025-02-08 14:13] VITALS: BP 122/63
--- NOTE | 2025-02-09 15:01 | PN.CDI ---
CDI
- -
CDI:
Physician Documentation Request
Admit Date: 02/05/25 12:32
Dear Doctor Tosha,
Patient admitted for bile duct stones.
02/06 GI Consult: 'impression: pancreatitis, pancreatitic cysts...MRI Abd MRCP findings:...mild dilatation of pancreatic duct within the head of the pancreas (4mm), posterior aspect of proximal tail (4mm cyst), posterior head pancreas (4mm cyst) and
few other scattered smaller cysts within pancreas'
Please indicate in your progress notes if you are in agreement that the above diagnosis is valid for this patient:
____ - Pancreatitis is a valid diagnosis (Please include it in your progress notes)
____ - Pancreatitis is not a valid diagnosis for this patient
____ - Pancreatitis is not yet confirmed but remains a suspected condition
____ - Other
____ - Unable to determine
Use of terms such as suspected, likely, concern for, or probable are acceptable for a diagnosis that is being evaluated, monitored or treated as if it exists and can be coded in the inpatient setting, when documented at the time of discharge.
Thank you,
Marylin Laurent RN, BSN
CDI Specialist
Available via [place] text
Please use your independent medical judgment in providing your response.
== END 2025-02-08 15:33 | disposition home or self-care (01) | DRG 444 ==
LOC: 3 WEST ACU 12:32
PROVIDERS: Internal Medicine; Internal Medicine Gastroenterology; Nurse Practitioner; ADMITTING PHYSICIAN Hospitalist; ATTENDING PHYSICIAN Internal Medicine; CONSULT PHYSICIAN Internal Medicine; EMERGENCY PHYSICIAN Emergency Medicine; FAMILY PHYSICIAN Family Medicine
PROC: 0F768DZ Dilation of Left Hepatic Duct with Intraluminal Device, Via Natural or Artificial Opening Endoscopic (ICD-10-PCS; 2025-02-07)
PROC: BF111ZZ Fluoroscopy of Biliary and Pancreatic Ducts using Low Osmolar Contrast (ICD-10-PCS; 2025-02-07)
PROC: BF4CZZZ Ultrasonography of Hepatobiliary System, All (ICD-10-PCS; 2025-02-07)
PROC: 0FC68ZZ Extirpation of Matter from Left Hepatic Duct, Via Natural or Artificial Opening Endoscopic (ICD-10-PCS; 2025-02-07)
PROC: 0DJ08ZZ Inspection of Upper Intestinal Tract, Via Natural or Artificial Opening Endoscopic (ICD-10-PCS; 2025-02-07)
DX: K80.51 Calculus of bile duct without cholangitis or cholecystitis with obstruction (principal); K85.90 Acute pancreatitis without necrosis or infection, unspecified; K86.2 Cyst of pancreas; R18.8 Other ascites; Z90.49 Acquired absence of other specified parts of digestive tract; D45 Polycythemia vera; K57.30 Diverticulosis of large intestine without perforation or abscess without bleeding; M48.00 Spinal stenosis, site unspecified; M19.90 Unspecified osteoarthritis, unspecified site; Z79.82 Long term (current) use of aspirin
CPT/HCPCS: 74177; 74183; 74330; 76000; 80053; 80076; 82248; 83690; 85025; 85027; 85610; 93005; 96361; 96374; 96375; 96376; 99285; A9575; C1769; C2617; Q9967